=== PATIENT | female | born 1955 | race Caucasian/White ===

== ENCOUNTER → 2021-05-24 | Day surgery (SDC) | payer OTHER ==
[~2021-05-24] MED LIST: ARAVA20 MG PO; ASPIRIN81 MG PO; BIOTIN2500 MCG PO; BLACK ELDERBER1 EACH PO; BUPIVACAINE HCL 0.5% INJ 30 ML VIAL INJ ONE; BUPROPION HCL100 MG PO; CALCIUM PO; DAYPRO600 MG PO; FENTANYL CITRATE/PF 100MCG/2 ML INJ ONE; GABAPENTIN300 MG PO; GLIMEPIRIDE2 MG PO; INSULIN REGULAR, HUMAN 100 UNIT/1 ML ONE; IOPAMIDOL 300MG/ML 50ML INFUS..BTL IV ONE; IRON PO; LEVOTHYROXINE88 MCG PO; LIDOCAINE HCL 2% LOCAL INJ 5 ML SDV VIAL INJ ONE; MAGNESIUM PO; METFORMIN HCL500 MG PO; MIDAZOLAM HCL 2 MG/2 ML VIAL ONE; ONE A DAY PO; PANTOPRAZOLE SO40 MG PO; POVIDONE IODINE 0.05% 0.05 % ML PO ONE; PROPOFOL IV EMULSION 10 MG/ML 20 ML VIAL ONE; TRIAMCINOLONE ACET 40 MG/ML VIAL ONE; VICTOZA 2-0.6 MG/0.1 INJ; VITAMIN C PO; VITAMIN D350 MCG PO; ZESTRIL10 MG PO; ZETIA10 MG PO
[2021-05-24 11:50] VITALS: BP 111/65
== END | disposition home or self-care (01) ==
LOC: OR 09:07
PROVIDERS: ATTEND Specialist
DX: M16.11 Unilateral primary osteoarthritis, right hip (principal); M06.9 Rheumatoid arthritis, unspecified; G47.33 Obstructive sleep apnea (adult) (pediatric); E03.9 Hypothyroidism, unspecified; E11.9 Type 2 diabetes mellitus without complications; K21.9 Gastro-esophageal reflux disease without esophagitis; I10 Essential (primary) hypertension; E78.5 Hyperlipidemia, unspecified; E66.01 Morbid (severe) obesity due to excess calories; F41.9 Anxiety disorder, unspecified; Z01.810 Encounter for preprocedural cardiovascular examination; Z01.812 Encounter for preprocedural laboratory examination; Z20.822 Contact with and (suspected) exposure to COVID-19; Z79.82 Long term (current) use of aspirin; Z79.84 Long term (current) use of oral hypoglycemic drugs; Z79.899 Other long term (current) drug therapy; Z68.41 Body mass index [BMI] 40.0-44.9, adult
CPT/HCPCS: 20610; 36415; 77002; 82948; 93005; J2001; J2704; J3301; Q9967; U0002; J1817; J2250; J3010